=== PATIENT | female | born 1975 | race Caucasian/White ===

== ENCOUNTER 2025-04-15 09:08 | Outpatient (CLI) | payer BC | END 2025-04-15 09:09 | disposition home or self-care (01) | LOC: CSHCT 09:08 | PROVIDERS: ATTEND Urology | DX: R31.29 Other microscopic hematuria (principal); K76.9 Liver disease, unspecified; J90 Pleural effusion, not elsewhere classified; Q64.8 Other specified congenital malformations of urinary system; D25.9 Leiomyoma of uterus, unspecified | CPT/HCPCS: 74178 ==